=== PATIENT | female | born 1955 | race Caucasian/White ===

== ENCOUNTER 2024-12-21 05:59 | Day surgery (SDC) | payer OTHER, SELFPAY ==
[2024-12-02 10:54] VITALS: BMI 42.3
[2024-12-02 11:39] LABS: % Basophils 0.3 % (0-2); % Eosinophils 1.4 % (0-6); % Immature Granulocytes 0.7 % (0-0.5); % Lymphocytes 20.2 % (20.5-51.1); % Monocytes 11.5 % (1.7-9.3); % Neutrophils 65.9 % (42.2-75.2); Absolute Eosinophils 0.1 10^3/uL (0-0.7); Absolute Lymphocytes 1.2 10^3/uL (1.2-3.4); Absolute Monocytes 0.7 10^3/uL (0.1-0.6); Absolute Neutrophils 3.8 10^3/uL (1.4-6.5); Hematocrit 35.7 % (37.0-47.0); Hemoglobin 11.6 g/dL (12.0-16.0); Mean Corp Hgb Conc. 32.5 g/dL (33.0-37.0); Mean Corpuscular Hgb 29.5 pg (27.0-31.0); Mean Corpuscular Volume 90.8 fL (81.0-99.0); Mean Platelet Volume 10.5 fL (7.4-10.4); Nucleated Red Blood Cells % 0 %; Platelet Count 207 10^3/uL (130-400); Red Blood Cell Count 3.93 10^6/uL (4.20-5.40); Red Cell Dist. Width 13.3 % (11.5-14.5); White Blood Cell Count 5.8 10^3/uL (4.8-10.8)
[2024-12-02 12:32] LABS: ALT (SGPT) 31 U/L (0-35); AST (SGOT) 28 U/L (14-36); Albumin 4.2 g/dl (3.5-5.0); Alkaline Phosphatase 103 U/L (38-126); Blood Urea Nitrogen 17 mg/dl (7-17); Calcium 9.5 mg/dl (8.4-10.2); Carbon Dioxide 28 mmol/L (22-30); Chloride 104 mmol/L (98-107); Estimated Creatinine Clearance 68 ml/min; Glucose 117 mg/dl (70-99); Magnesium 2.1 mg/dl (1.6-2.3); Potassium 5.2 mmol/L (3.5-5.1); Sodium 138 mmol/L (135-145); Total Bilirubin 0.6 mg/dl (0.2-1.3); Total Protein 6.8 g/dl (6.3-8.2); eGFR > 60.00
[2024-12-02 12:42] LABS: INR 0.96; PT 13.3 Sec (11.4-14.6)
[2024-12-21] VITALS (17 sets, daily range): BP systolic 87–142; BP diastolic 45–98; BMI 42.1
[2024-12-21] MEDS: NSS 500 IV (07:00)
[2024-12-21 09:01] LABS: ACT-LR - POC 305 Seconds (116-155)
--- NOTE | 2024-12-21 09:15 | ITS.CL.ABL ---
Senior Managing Director - Ablation
Ablation
Procedure Report:
ELECTROPHYSIOLOGY ABLATION STUDY
DATE:: December 21, 2024�����������������������������REFERRING: Dr. Angel Best
INDICATION: Paroxysmal supraventricular tachycardia in the form of atrial fibrillation.��Prior pacemaker in [facility] in 2020.
HISTORY: See H and P.��As above
ANTIARRHYTHMIC DRUG: Amiodarone
PRE-PROCEDURE HILARY: No intracardiac thrombus on intracardiac ultrasound
PRESENTING RHYTHM: Atrial pacing with lower brule conduction
'TIME-OUT':��called and confirmed.
SEDATION/ANESTHESIA:��provided via the anesthesia department using general anesthesia (LMA).
INTRAVENOUS/ARTERIAL ACCESS:
Right femoral venous - 10 Fr
Left femoral venous - 8 Fr, 6 Fr
[id number] suture bilaterally
Ultrasound guidance for bilateral femoral vein access was utilized by me to obtain access with demonstration of normal anatomy
CHADS-VASC Score:
HAS-Bled Score
PROCEDURE:
1.��A decapolar CS catheter was placed within the CS for mapping and pacing.��This was also used as the reference catheter for the 3-D map. Patient's dual-chamber Medtronic pacemaker which was implanted in 2020 was interrogated pre and
postoperatively with stable parameters. I did extend the patient's AV delays to 240 paced and 210 milliseconds. This was done because the patient had some intrinsic lower brule conduction.
2. The intracardiac ultrasound catheter was positioned in the RA to identify the FO for targeting of transseptal puncture, assist��in identification of the pulmonary vein ostia, monitoring pre and post ablation pulmonary vein flow velocities,
monitoring for 'bubble' formation during RF application as a sign of thermal injury,��and to monitor for pericardial effusion during mapping and ablation procedure.���Left atrial size, LV ejection fraction, and pulmonary vein flows were monitored
pre and post ablation procedure. The other valves were inspected and found to be free of significant regurgitation or stenosis.
3.��Half of the calculated heparin bolus was administered prior to the first transeptal puncture.��Transseptal puncture was performed to diagnose RA and LA pressure so that safety of LA mapping and ablation could be further assessed, and to access
the left atrium and pulmonary veins for mapping and ablation.��This entailed advancing an 16.8 Urdu sheath, RF wire with dilator into the superior vena cava and withdrawing both (monitoring intracardiac ultrasound, fluoroscopy and tip pressure)
with the tip oriented toward the atrial septum.��The fossa ovalis was engaged (indicated by sudden displacement of the sheath tip as well as tenting of the fossa seen on intracardiac ultrasound).��Left atrial access required a pass with the
Brockenbrough needle extended.��Left atrial catheter position was confirmed by pressure monitoring (RA mean pressure 8 mm Hg and LA mean presure 12 mm Hg), LA saturation (99%),��as well as fluoroscopy.��The sheath was advanced over the dilator and
positioned in the left atrium.��The remainder of the calculated heparin bolus was administered and heparin was
infused to maintain ACT at 300 -350 seconds throughout the case.
4.��RA pacing was performed via the proximal decapolar poles and LA pacing was performed via the distal decapolr poles.
5. A quadrapolar catheter was first positioned at the His position for His Bundle recording which was tagged via the 3-D Navex sytem, and then passed to the RVA for RV pacing and recording.
6. The ablation catheter was positioned through one of the transeptal seaths and a 20 pole ring mapping catheter was positioned through the second seath into the LA and then the ostia of the LIPV, LSPV, RSPV and the RIPV.��
7.��Next, a 3-D map was created using Navex.���A 3-D reconstructed CT image was compared to the 3-D Navex map to assist in anatomic interpretation, mapping and ablation.��The CT image and the NavX image were fused.
8. A total of 51 lesions were given and all of and basket post to the pulmonary veins and flower post to the roof posterior wall and floor of the left atrium. Entrance next block was confirmed in all 5 structures and there is noninducibility for
other tachyarrhythmia.
9. Normal sinus node and AV node function noted.
TOTAL FLOURO TIME: 9.6 minutes 112 mGy
TOTAL RF DURATION: 0 minutes
REVERSAL OF HEPARIN: 35 mg of protamine, slow IV administration
COMPLICATIONS:
None
Intracardiac US shows no pericardial effusion post ablation.
SUMMARY:��
Complex left atrial mapping and ablation.
Isolation of all 4 pulmonary veins and extra pulmonary vein structures with the left atrial roof posterior wall and floor.
RECOMMENDATIONS:
1. Admit to monitored bed.��
2. Resume anticoagulation
3.��Lower amiodarone to 200 mg x 1 month
4.��Consider same-day discharge
Copy to: Dr. Angel Best
[2024-12-21] MEDS: TYLENOL 1000 MG PO (09:51)
[2024-12-21] MEDS: ULTRAM 50 MG PO ×2 (11:08→21:00)
--- NOTE | 2024-12-21 13:39 | PTCARENOTE ---
Pressure held on right groin for 10 minutes for bleed post stitch removal. No further bleed since the application of new dressing. No ecchymosis or hematoma. Dania DELGADO notified.
--- NOTE | 2024-12-21 15:15 | PTCARENOTE ---
Received pt from cardiac cath lab technologist, VSS, monitor showing a pacing. BL groin sites with dressing c/d/i, no bleeding or hematoma noted. Pt oriented to room, call mayberry in reach.
[2024-12-21] MEDS: XARELTO 20 MG PO (17:31)
[2024-12-21] MEDS: NSS IV (19:49)
[2024-12-22 04:07] VITALS: BP 91/57
[2024-12-22 04:24] VITALS: BMI 42.6
[2024-12-22 04:52] LABS: Hematocrit 32.3 % (37.0-47.0); Hemoglobin 10.9 g/dL (12.0-16.0); Mean Corp Hgb Conc. 33.7 g/dL (33.0-37.0); Mean Corpuscular Hgb 29.5 pg (27.0-31.0); Mean Corpuscular Volume 87.5 fL (81.0-99.0); Mean Platelet Volume 10.3 fL (7.4-10.4); Platelet Count 179 10^3/uL (130-400); Red Blood Cell Count 3.69 10^6/uL (4.20-5.40); Red Cell Dist. Width 13.2 % (11.5-14.5); White Blood Cell Count 9.1 10^3/uL (4.8-10.8)
[2024-12-22 05:38] LABS: Blood Urea Nitrogen 23 mg/dl (7-17); Calcium 8.8 mg/dl (8.4-10.2); Carbon Dioxide 26 mmol/L (22-30); Chloride 105 mmol/L (98-107); Estimated Creatinine Clearance 85 ml/min; Glucose 146 mg/dl (70-99); Magnesium 1.9 mg/dl (1.6-2.3); Potassium 4.5 mmol/L (3.5-5.1); Sodium 138 mmol/L (135-145); eGFR > 60.00
--- NOTE | 2024-12-22 05:45 | PTCARENOTE ---
Pt A paced on monitor, denies palpitations or SOB. C/o chronic back pain PRN meds given with positive result. Pt ambulates with x1 assist. Call mayberry in reach
--- NOTE | 2024-12-22 07:40 | PTCARENOTE ---
Pt Jordanian speaking. Interpretation of all nursing measures and plan of care through language line via ipad. Pt verbalizes understanding.
[2024-12-22 08:16] VITALS: BP 93/57
--- NOTE | 2024-12-22 08:25 | W.PN.CARDCBS ---
Addendum entered and electronically signed by Steve De La Rosa MD 12/22/24 09:42:
She was completely asymptomatic this morning. Apparently after breakfast she developed a flushing, cough, and throat tightness. Better after IV Benadryl after discussion with my team.
Sinus rhythm on telemetry
Agree with MAJOR GENERAL note and assessment
Agree with MAJOR GENERAL plan
Examination:
Alert and orient x 3
Nonfocal neurologically
She was asymptomatic when examined this morning this was before breakfast
JVP 6
Cor regular
Lungs were clear to auscultation bilaterally
Abdomen soft nontender positive bowel sounds
IMPRESSION:
PAF
S/P PFA/LAPW ablation, 12/21/24
Allergic reaction, unknown cause
Tachy mohsen syndrome, s/p PPM (2020, in [facility] [place])
HTN
HLD
GERD
GITA, non compliant with CPAP
B-12 Deficiency
Osteoarthritis
PLAN:
Tele- APaced 70s
Groin sites stable
oob ambulating
resume xarelto
decrease amiodarone to 200mg daily for 30 days, then stop
followup with Dr. Best as scheduled
Allergic reaction treated with diphenydramine as well as steroid/H2 jose. We will observe her throughout the day. Will consider Medrol Dosepak at discharge
likely a food related allergy as she has not had anything else this morning as noted- possible causes pineapple or canteloupe, dairy, wheat, rice.
will moniter her today and if she improves, will d/c with medrol dose pack as well as pepcid.
should followup with PCP in the next week, ultimately with juvenile correctional officer
using physician assistant line, pt was warned against eating these foods at this time.
Discussed with my primary team
Original Note:
Today's Communication / Plan
-
Resume xarelto
decrease amio to 200/daily for 30d then stop
monitor allergic reaction and response to treatment
Impression / Plan
-
PCP: Chico Marrufo, DO
CDY: Chico Best MD
69 y/o, PMH sig for PAF, intolerant of flecainide, symptomatic with DOYLE and palps. [id number], maintained on xarelto, amiodarone. Prior pacemaker placed in 2020 in [facility], and is 60-70% APaced on interrogation.
Now s/p PFA/LAPW ablation.
Stable overnight until this morning, developed face and chest flushing with swelling, throat became tight, scratchy with cough and difficulty getting breaths. This began after she ate some breakfast, which included decaf coffee with non dairy
creamer and brown sugar, chapo food cake and pineapple/melon bites. She had not yet been given morning meds.
Using the physician assistant line, pt states that she has no food allergies and did not take any meds from home. She states this has never happened before to her. Exam with + tight cough, mild dyspnea and facial/neck/chest flushing, no lip swelling,
hypoxia, or wheezing.
Given diphenhydramine 25mg x2 with relief of throat itching/cough/dyspnea and ordered solucortef 100mg x1 as well as pepcid 20mg IV x1.
IMPRESSION:
PAF
S/P PFA/LAPW ablation, 12/21/24
Allergic reaction, unknown cause
Tachy mohsen syndrome, s/p PPM (2020, in [facility])
HTN
HLD
GERD
GITA, non compliant with CPAP
B-12 Deficiency
Osteoarthritis
PLAN:
Tele- APaced s
Groin sites stable
oob ambulating
resume xarelto
decrease amiodarone to 200mg daily for 30 days, then stop
followup with Dr. Best as scheduled
Allergic reaction treated with diphenydramine as well as steroid/H2 jose
likely a food related allergy as she has not had anything else this morning as noted- possible causes pineapple or canteloupe, dairy, wheat, rice.
will moniter her today and if she improves, will d/c with medrol dose pack as well as pepcid.
should followup with PCP in the next week, ultimately with juvenile correctional officer
using physician assistant line, pt was warned against eating these foods at this time.
Discussed with Dr. De La Rosa
Progress Note - Banana Expert
Subjective
Date of Service: December 22, 2024
Denies cp/palps
oob ambulating
groin sites without pain
allergic reaction as noted above
Objective
Labs:
12/22/24 04:18
12/22/24 04:18
Labs
Hgb 10.9 g/dL (12.0-16.0) L 12/22/24 04:18
Hct 32.3 % (37.0-47.0) L 12/22/24 04:18
Plt Count 179 10^3/uL (130-400) 12/22/24 04:18
PT 13.3 Sec (11.4-14.6) 12/02/24 11:09
INR 0.96 12/02/24 11:09
Sodium 138 mmol/L (135-145) 12/22/24 04:18
Potassium 4.5 mmol/L (3.5-5.1) 12/22/24 04:18
BUN 23 mg/dl (7-17) H 12/22/24 04:18
Creatinine 0.8 mg/dL (0.6-1.0) 12/22/24 04:18
Glucose 146 mg/dl (70-99) H 12/22/24 04:18
Vital Signs and I&O:
Vital Signs
Temp Pulse Resp BP Pulse Ox
98.4 F 70 18 91/57 94
12/22/24 08:18 12/22/24 04:45 12/22/24 08:18 12/22/24 04:07 12/22/24 08:18
Vital Signs
Temp Pulse Resp BP Pulse Ox
98.4 F 70 18 91/57 94
12/22/24 08:18 12/22/24 04:45 12/22/24 08:18 12/22/24 04:07 12/22/24 08:18
Intake & Output
12/20/24 12/21/24 12/22/24 12/23/24
06:59 06:59 06:59 06:59
Intake Total 1180 / 1180
Balance 1180 / 1180
Physical Exam
Physical Exam
AAOx3, MAEE 5/5
Facial flushing to cheeks/neck/upper chest
RRR S1 S2 no murmurs
CTA bilat, mild dyspnea and tight cough
soft abd, + bs
bilat groin sites without ht/bleeding, non tender
bilat extremities w/palpable distal pulses, no edema
[2024-12-22] MEDS: BENADRYL 25 MG IV ×2 (08:44→09:05)
[2024-12-22 08:45] VITALS: BP 112/79
[2024-12-22] MEDS: NSS (PRESERVATIVE FREE) 8 ML IV (09:23)
[2024-12-22] MEDS: PEPCID 20 MG IV (09:23)
[2024-12-22] MEDS: SOLU-CORTEF 100 MG IV (09:26)
[2024-12-22] MEDS: PROTONIX 40 MG PO (11:31)
[2024-12-22] MEDS: ALDACTONE 25 MG PO (11:31)
[2024-12-22] MEDS: TOPROL XL 50 MG PO (11:31)
[2024-12-22] MEDS: PACERONE 200 MG PO (11:32)
[2024-12-22] MEDS: XARELTO 20 MG PO (11:32)
[2024-12-22] MEDS: TYLENOL 650 MG PO (11:32)
[2024-12-22] MEDS: NSS IV (11:32)
[2024-12-22 11:34] VITALS: BP 112/72
--- NOTE | 2024-12-22 12:45 | CM ---
Reviewed chart. Met with Mrs. Whitehead to review discharge plans. Used the director it thru the Language Line for the assessment. She states prior to admission she resides with her daughter in an apartment. She states she has eight steps to
get into the building and then eight steps to enter the apartment. She states prior to admission she ambulates with a single point cane, or walker. She has a walker, single point cane and crutches at home. She states she has [facility] but she
can not recall the name of the agency. She states she has a prescription plan and uses [facility]. The discharge plan is to return home with her daughter when medically stable.
--- NOTE | 2024-12-22 15:10 | W.PN.UPDATE ---
Update Note
Progress Note Update
Re-eval pt this afternoon after a likely food mediated acute allergic angioedema. She is sitting in the chair and has eaten all of the food on her lunch tray.
With the bilingual interpreter line, pt states that her throat is much better and she has only a little scratchiness left and some burning. She states that her breathing has improved.
On exam, lungs are clear, breathing non labored. Face/cheek/neck skin flush and swelling from earlier is resolved.
Medrol dose pack and pepcid rx sent to pharmacy.
She was instructed to take the entire dose pack and followup with PCP in the next week.
Other dc instructions reviewed with the patient with the welding machine operator electro gas, pt verbalized understanding and all questions answered.
OK for discharge.
--- NOTE | 2024-12-22 15:12 | PTCARENOTE ---
Pt developed flushing of face and chest, a cough and throat tightness after eating breakfast. SALESPERSON FLYING SQUAD evaluated pt at bedside. Orders noted and meds given as ordered. Pt's symptoms improved. Pt was able to tolerate meds and lunch. Pt to follow up
with her primary doctor after d/c. Will monitor.
[2024-12-22] MEDS: DELTASONE 50 MG PO (15:37)
--- NOTE | 2024-12-22 15:45 | W.DS.TRANS ---
DC Summary - Knifer Up
-
Discharge Instructions:
Discharge Diagnosis/Procedures Atrial fibrillation post ablation
Diet Low Sodium
Driving Restrictions No driving for 24 hours
Instructions:
Stand-Alone Forms: DC Instructions- Cath/EP Lab
Changes to Home Medications: Yes
Discharge Medications:
DC Medications w/original date entered in [employer]
cholecalciferol (vitamin D3) 125 mcg (5,000 unit) tablet (Vitamin D3) 125 mcg PO WEEKLY Supplement 11/30/24
mecobalamin (vitamin B12) 1,000 mcg chewable tablet 1,000 mcg PO .4X/WEEK Supplement 11/30/24
metoprolol succinate 50 mg tablet,extended release 24 hr 50 mg PO DAILY Blood Pressure 11/30/24
pantoprazole 40 mg tablet,delayed release 40 mg PO DAILY Gastrointestinal Issue 11/30/24
ramipril 2.5 mg capsule 2.5 mg PO DAILY Blood Pressure 11/30/24
rivaroxaban 20 mg tablet (Xarelto) 20 mg PO DAILY Blood Clot Prevention/Tx 11/30/24
spironolactone 25 mg tablet 25 mg PO DAILY Fluid Retention/Swelling 11/30/24
tizanidine 2 mg tablet 2 mg PO Q8H PRN MUSCLE SPASMS 11/30/24
tramadol 50 mg tablet 50 mg PO Q6H PRN PAIN 11/30/24
acetaminophen 325 mg tablet (Tylenol) 650 mg PO QID PRN back pain 12/21/24
amiodarone 200 mg tablet 200 mg PO DAILY #0 tabs 12/21/24
metoprolol succinate 25 mg tablet,extended release 24 hr 25 mg PO QPMPRN PRN palpitations 12/21/24
famotidine 20 mg tablet (Pepcid) 20 mg PO DAILY #30 tabs 12/22/24
methylprednisolone 4 mg tablets in a dose pack (Medrol (Josafat)) See Rx Instructions PO .COMPLEX #21 ea 12/22/24
oxycodone 10 mg tablet,oral ONLY (not feeding tubes) 10 mg PO DAILY PRN pain 12/22/24
Home Medication Changes
DOSE DECREASE: amiodarone
NEW: famotidine, methyprednisolone dose pack
Pending Results: No
[2024-12-22 15:52] VITALS: BP 110/71
--- NOTE | 2024-12-22 17:02 | PTCARENOTE ---
Pt's discharge instructions reviewed w/ pt's daughter and grandaughter. Pt's grandaughter speaks British. Phone number for IVU provided to pt's family for further questions. Pt discharged to daughter care.
== END 2024-12-22 17:37 | disposition home or self-care (01) ==
LOC: CATH 05:59
PROVIDERS: Nurse Practitioner Adult Health; ATTENDING PHYSICIAN Internal Medicine Cardiovascular Disease; FAMILY PHYSICIAN Family Medicine; OTHER PHYSICIAN Internal Medicine Cardiovascular Disease
DX: I48.0 Paroxysmal atrial fibrillation (principal); I47.19 Other supraventricular tachycardia; I49.5 Sick sinus syndrome; I10 Essential (primary) hypertension; E78.5 Hyperlipidemia, unspecified; K21.9 Gastro-esophageal reflux disease without esophagitis; Z91.199 Patient's noncompliance with other medical treatment and regimen due to unspecified reason; G47.33 Obstructive sleep apnea (adult) (pediatric); E53.8 Deficiency of other specified B group vitamins; M19.90 Unspecified osteoarthritis, unspecified site; Z95.0 Presence of cardiac pacemaker; Z79.899 Other long term (current) drug therapy; Z79.01 Long term (current) use of anticoagulants; T78.40XA Allergy, unspecified, initial encounter; Z96.653 Presence of artificial knee joint, bilateral; Z90.49 Acquired absence of other specified parts of digestive tract; E66.01 Morbid (severe) obesity due to excess calories; Z68.41 Body mass index [BMI] 40.0-44.9, adult
CPT/HCPCS: C1892; C1759; C1730; C1769; C1732; C1894; 36415; 75572; 80048; 80053; 83735; 85025; 85027; 85347; 85610; 86850; 86900; 86901; 93005; 93655; 93656; C1733; C1766; Q9967